=== PATIENT | female | born 1935 | race Caucasian/White ===

== ENCOUNTER 2019-07-23 18:11 | Emergency (ER) | payer MEDICARE, SELFPAY ==
[2019-07-23 18:13] VITALS: BP 156/86; PULSE 80; RESP 16; TEMP 36.2; O2SAT 98; BMI 20.5
--- NOTE | 2019-07-23 18:17 | EKG12_ITS ---
Test Reason : CP Blood Pressure : / mmHG Vent. Rate : 083 BPM Atrial Rate : 083 BPM P-R Int : 162 ms QRS Dur : 078 ms QT Int : 346 ms P-R-T Axes : 077 066 046 degrees QTc Int : 406 ms Sinus rhythm with Premature supraventricular complexes and with occasional Premature ventricular comp lexes Low voltage QRS Septal infarct , age undetermined Abnormal ECG Confirmed by LEDY THOMAS, LUTHER ([id number]), commissioning editor ENMANUEL BRAUN ([id number]) on 07/28/2019 1:41:01 PM Referred By: Elvin Zavala Confirmed By:OSMIN VILLAFANA MD
--- NOTE | 2019-07-23 19:22 | ED.RN ---
NO OLD EKGS IN MUSE
[2019-07-23 19:27] LABS: Absolute Lymphocyte Count 0.65 X10^3/uL (0.83-4.51); Absolute Neutrophil Count 10.7 X10^3/uL (2.0-7.7); Basophil# 0.09 X10^3/uL; Basophil% 0.7 % (0-1); Eosinophil# 0.06 X10^3/uL; Eosinophils% 0.5 % (0-5); Hematocrit 43.1 % (37-47); Hemoglobin 14.8 g/dL (12.0-15.0); Lymphocyte # 0.65 X10^3/ul (4.0); Lymphocyte % 5.3 % (19-41); Mean Corp Hgb Conc 34.3 g/dL (32-36); Mean Corpuscular Hgb 31.2 pg (27.0-32.0); Mean Corpuscular Volume 90.7 fL (81-99); Mean Platelet Vol. 11.1 fl (6.2-12.0); Monocyte# 0.63 X10^3/uL; Monocyte% 5.2 % (0-10); NRBC Flagged by Analyzer 0 % (0-5); Neutrophil # 10.74 X10^3/uL (2.7-7.7); Neutrophil % 87.9 % (47-70); Platelet Count 223 K/mm3 (150-450); RBC Distribution Width CV 12.1 % (11.6-14.6); RBC Distribution Width SD 40.5 fl (35.1-43.9); Red Blood Count 4.75 M/mm3 (4.2-5.4); White Blood Count 12.2 K/mm3 (4.4-11.0)
[2019-07-23 19:36] LABS: Anion Gap 9 (5-15); BUN 20 mg/dL (7-18); BUN/Creat Ratio 11.8 RATIO (10-20); Chloride 98 mmol/L (98-107); Creatinine, Serum 1.69 mg/dL (0.55-1.02); EST Glomerular Filtration Rate 31 mL/min (>60); Est Glom Filt Rate - Afr Amer 37 mL/min (>60); Estimated Creatinine Clearance 18.75 ml/min; Glucose 139 mg/dL (74-106); Potassium 3.2 mmol/L (3.5-5.1); Sodium Level 133 mmol/L (136-145)
--- NOTE | 2019-07-23 19:37 | RAD_ITS ---
STUDY: X-RAY CHEST REASON FOR EXAM: Female, 83 years old. Palpitation TECHNIQUE: Frontal view COMPARISON: None. FINDINGS: The lungs are clear and expanded. There is no demonstrated pleural abnormality. Normal size heart. Normal mediastinum and annie. Normal visualized pulmonary arteries. Calcified visualized aortic arch and descending thoracic aorta. Degenerative changes of the thoracic spine. Normal visualized ribs, clavicles, and shoulders. There is no demonstrated abnormality of the visualized soft tissue structures of the upper abdomen. RAD/Chest 1 View (Portable) IMPRESSION: Normal x-ray examination of the chest. Electronically Signed: Demetrius Pederson DO at 20:00 EDT Tel [phone], Service support ,
[2019-07-23 19:47] VITALS: PULSE 84; RESP 15; O2SAT 95
[2019-07-23 20:18] VITALS: BP 140/72; PULSE 81; RESP 17; O2SAT 97
[2019-07-23 20:18] LABS: Thyroid Stim Hormone (TSH) 1.74 uIU/mL (0.358-3.74)
[2019-07-23 20:32] LABS: International Normalized Ratio 1.1; Prothrombin Time (Protime)PT. 13.8 SECONDS (11.7-14.9)
[2019-07-23 20:33] LABS: Partial Thromboplast Time 27.7 Seconds (24.1-36.2)
[2019-07-23 21:13] VITALS: BP 122/69; PULSE 74; RESP 12; O2SAT 95
--- NOTE | 2019-07-23 21:24 | ED.VISSUMM ---
- ER Visit Summary Date of Service: 07/23/19 Chief Complaint: Irregular heartbeat History of Present Illness: The patient is a 83 F with an irregular heartbeat that started this evening today. The patient woke up from a nap and noticed her heart rate was 120 on her Fitbit. She had some mild shortness of breath. Her daughter is an ER nurse and checked her pulse and it was irregular. The patient has no history of atrial fibrillation. She does not take blood thinners. History of hypertension, hyperlipidemia, and hypothyroidism. Denies any lung disease, PE, or recent illness. Physical Examination: Afebrile and vital signs are unremarkable. Alert and oriented. No acute distress. Irregular heartbeat. Lungs clear. Abdomen soft. Skin normal. Pulses strong and equal. Calf soft and supple. Test Results: EKG showed sinus rhythm at a rate of 83 with PACs and PVCs. White count 12.2, sodium 133, potassium 3.2, glucose 139, BUN 20, creatinine 1.69. Coags normal. Troponin normal. TSH normal. Chest x-ray normal. Emergency Department Course and Treatment: Patient was placed on a monitor. She showed sinus rhythm with PVCs and PACs. I did not appreciate atrial fibrillation or other dysrhythmias. QTc was normal. Otherwise EKG was normal. Her work-up here was unremarkable. Her potassium was 3.2 which was replaced with K-Dur 40 mEq. I believe the patient has symptomatic PVCs. Will order a Holter monitor and have her follow-up with cardiology. Family knows Dr. Zavala. Patient was advised to return for chest pain, shortness of breath, unexplained fatigue or lightheadedness, or any other new or concerning symptoms as she could require hospitalization. Patient voiced understanding and agreement. Family voiced understanding and agreement. Treatment Plan: Above Disposition: Discharge Impression: 1. Palpitations This note was generated with [employer] dictation software. It may contain incorrect words, spelling, and punctuation that were not noted in review of the chart prior to signing ED Disposition - Plan for ED Patient: Referrals: Fox Sanchez III, MD [Primary Care Provider] -
--- NOTE | 2019-07-23 21:28 | ED.DEP ---
ED Disposition - Plan for ED Patient: Instructions: Palpitations Referrals: Elvin Zavala MD [STAFF PHYSICIAN] -
[2019-07-23 21:36] VITALS: BP 130/78; PULSE 80; RESP 16; O2SAT 100
== END 2019-07-23 21:58 | disposition home or self-care (01) ==
LOC: ED 20:12
PROVIDERS: Emergency Provider Emergency Medicine; Family Provider Family Medicine; PCP Family Medicine
DX: R00.2 Palpitations (principal); I49.1 Atrial premature depolarization; I49.3 Ventricular premature depolarization; I10 Essential (primary) hypertension; E78.5 Hyperlipidemia, unspecified; E03.9 Hypothyroidism, unspecified; Z79.899 Other long term (current) drug therapy
CPT/HCPCS: 36415; 71045; 80048; 84443; 84484; 85025; 85610; 85730; 93005; 99285; A4216

== ENCOUNTER → 2019-07-23 21:23 | Outpatient (CLI) | payer MEDICARE, SELFPAY ==
[2019-07-23 18:13] VITALS: BMI 20.5
== END ==
PROVIDERS: Family Provider Family Medicine; PCP Family Medicine; Referring Provider Internal Medicine Cardiovascular Disease; Visit Provider Internal Medicine Cardiovascular Disease
DX: R00.2 Palpitations (principal); I49.1 Atrial premature depolarization; I49.3 Ventricular premature depolarization; I10 Essential (primary) hypertension; E78.5 Hyperlipidemia, unspecified; E03.9 Hypothyroidism, unspecified; Z79.899 Other long term (current) drug therapy; R06.02 Shortness of breath
CPT/HCPCS: 36415; 71045; 80048; 84443; 84484; 85025; 85610; 85730; 93225; 93226; A4216

== ENCOUNTER → 2019-08-06 12:54 | Outpatient (CLI) | payer MEDICARE, SELFPAY ==
[2019-07-25 08:47] VITALS: BMI 19.3
--- NOTE | 2019-08-06 12:57 | ECHOD_ITS ---
Reason For Study: Arrhythmia Procedure This was a 2D Doppler, Color Flow transthoracic echocardiogram. Exam performed in department. Left Ventricle Normal LV size. Left ventricular systolic function is normal. The estimated ejection fraction is 65 %. Normal diastology for age. No regional wall motion abnormalities noted. Right Ventricle Normal RV size. Normal systolic function. Atria Normal left atrium. Normal right atrium. Mitral Valve Normal mitral valve. Mild (1+) mitral valve insufficiency. Tricuspid Valve Normal tricuspid valve. Mild (1+) tricuspid valve insufficiency. Pulmonary artery systolic pressure is 35 mmHg. Aortic Valve Normal aortic valve. Trisinus/trileaflet aortic valve. Pulmonic Valve Normal pulmonic valve. Great Vessels Normal aortic root. The pulmonary artery is normal size. Normal inferior vena cava. Pericardium/Pleural No pericardial effusion. MMode/2D Measurements & Calculations LVIDd: 3.5 cm IVSd: 0.85 cm LVOT diam: 1.9 cm LVIDs: 1.7 cm LVPWd: 0.75 cm LVOT area: 2.7 cm2 RVDd: 3.1 cm FS: 51.0 % Ao root diam: 2.9 cm LAV(MOD-bp): 51.8 ml LA A4 area: 17.7 cm2 LAV(MOD-bp) Indexed: 36.5 ml/m2 LAV(MOD-sp2): 50.5 ml LAV(MOD-sp4): 46.5 ml LA dimension(2D): 3.1 cm RA A4 area: 13.8 cm2 Doppler Measurements & Calculations MV E max devin: 102.6 cm/sec Lat Peak E' Devin: 12.3 cm/sec Med Peak E' Devin: 9.6 cm/sec MV A max devin: 93.9 cm/sec E/E' lat: 8.3 E/E' med: 10.6 MV E/A: 1.1 Ao V2 max: 177.7 cm/sec LV V1 max: 122.4 cm/sec SV(LVOT): 78.3 ml Ao max P.6 mmHg LV V1 max P.0 mmHg Ao V2 mean: 111.7 cm/sec LV V1 mean P.2 mmHg Ao mean P.7 mmHg LV V1 mean: 85.1 cm/sec Ao V2 VTI: 36.8 cm LV V1 VTI: 28.6 cm TEE(I,D): 2.1 cm2 TEE(V,D): 1.9 cm2 PA V2 max: 136.8 cm/sec TR max devin: 277.3 cm/sec TR max P.9 mmHg Interpretation Summary Normal LV size. Left ventricular systolic function is normal. The estimated ejection fraction is 65 %. Normal diastology for age. Mild (1+) mitral valve insufficiency. Ordering Physician: Elvin Zavala Referring Physician: SUMIT Sanchez M.D. Performed By: Candie Ross, [facility]
[2019-08-06 15:55] LABS: Anion Gap 5 (5-15); BUN 14 mg/dL (7-18); BUN/Creat Ratio 12.6 RATIO (10-20); Chloride 108 mmol/L (98-107); Creatinine, Serum 1.11 mg/dL (0.55-1.02); EST Glomerular Filtration Rate 50 mL/min (>60); Est Glom Filt Rate - Afr Amer 61 mL/min (>60); Glucose 91 mg/dL (74-106); Magnesium 2.2 mg/dL (1.6-2.6); Sodium Level 141 mmol/L (136-145)
== END ==
PROVIDERS: Family Provider Family Medicine; PCP Family Medicine; Referring Provider Internal Medicine Cardiovascular Disease; Visit Provider Internal Medicine Cardiovascular Disease
DX: R00.2 Palpitations (principal)
CPT/HCPCS: 36415; 80048; 83735; 93306

== ENCOUNTER → 2019-10-08 13:15 | Outpatient (CLI) | payer MEDICARE, SELFPAY ==
[2019-09-03 08:46] VITALS: BMI 19.9
[2019-10-08 14:01] LABS: Anion Gap 6 (5-15); BUN 20 mg/dL (7-18); BUN/Creat Ratio 16.1 RATIO (10-20); Calcium,Total 10.2 mg/dL (8.5-10.1); Chloride 100 mmol/L (98-107); Creatinine, Serum 1.24 mg/dL (0.55-1.02); EST Glomerular Filtration Rate 44 mL/min (>60); Est Glom Filt Rate - Afr Amer 53 mL/min (>60); Glucose 121 mg/dL (74-106); Potassium 3.8 mmol/L (3.5-5.1); Sodium Level 134 mmol/L (136-145)
== END ==
PROVIDERS: Family Provider Family Medicine; PCP Family Medicine; Referring Provider Internal Medicine Cardiovascular Disease; Visit Provider Internal Medicine Cardiovascular Disease
DX: R00.2 Palpitations (principal)
CPT/HCPCS: 36415; 80048

== ENCOUNTER 2021-11-30 10:46 | Outpatient (CLI) | payer MEDICARE, SELFPAY ==
--- NOTE | 2021-11-30 10:52 | ECHOD_ITS ---
Reason For Study: MURMUR Procedure This was a 2D Doppler, Color Flow transthoracic echocardiogram. Exam performed in department. Left Ventricle Normal LV size. Left ventricular systolic function is normal. The estimated ejection fraction is 60 %. Stage 1 diastolic dysfunction. No regional wall motion abnormalities noted. Right Ventricle Normal RV size. Atria Normal left atrium. Normal right atrium. Mitral Valve Normal mitral valve. Tricuspid Valve Normal tricuspid valve. Mild (1+) tricuspid valve insufficiency. Pulmonary artery systolic pressure is 33 mmHg. Aortic Valve Trisinus/trileaflet aortic valve. Mild focal aortic valve thickening. Peak aortic valve gradient 9 mmHg. Mean aortic valve gradient 4 mmHg. Pulmonic Valve Normal pulmonic valve. Mild (1+) pulmonic valve insufficiency. Great Vessels Normal aortic root. The pulmonary artery is normal size. Normal inferior vena cava. Pericardium/Pleural No pericardial effusion. MMode/2D Measurements & Calculations LVIDd: 3.3 cm IVSd: 0.81 cm LVOT diam: 1.9 cm LVIDs: 1.9 cm LVPWd: 0.87 cm LVOT area: 2.7 cm2 RVDd: 2.7 cm FS: 41.0 % Ao root diam: 3.0 cm LAV(MOD-bp): 29.5 ml LA A4 area: 12.1 cm2 LAV(MOD-bp) Indexed: 21.0 ml/m2 LAV(MOD-sp2): 30.4 ml LAV(MOD-sp4): 28.1 ml LA dimension(2D): 3.1 cm RA A4 area: 12.0 cm2 Time Measurements MV dec time: 0.24 sec Doppler Measurements & Calculations MV E max devin: 57.3 cm/sec Lat Peak E' Devin: 5.9 cm/sec Med Peak E' Devin: 5.4 cm/sec MV A max devin: 80.2 cm/sec E/E' lat: 9.6 E/E' med: 10.6 MV E/A: 0.71 Ao V2 max: 151.3 cm/sec LV V1 max: 100.0 cm/sec SV(LVOT): 54.3 ml Ao max P.2 mmHg LV V1 max P.0 mmHg Ao V2 mean: 95.9 cm/sec LV V1 mean P.8 mmHg Ao mean P.3 mmHg LV V1 mean: 64.6 cm/sec Ao V2 VTI: 30.3 cm LV V1 VTI: 20.2 cm TEE(I,D): 1.8 cm2 TEE(V,D): 1.8 cm2 PA V2 max: 68.9 cm/sec TR max devin: 267.8 cm/sec TR max P.7 mmHg ECHO/Echo Complete Interpretation Summary Normal LV size. Left ventricular systolic function is normal. The estimated ejection fraction is 60 %. Mild focal aortic valve thickening. Stage 1 diastolic dysfunction. Ordering Physician: Nerissa Fletcher Referring Physician: Dorian Fuentes Performed By: Tonya Ruiz, ANGEL, RVT
== END 2021-11-30 23:59 | disposition home or self-care (01) ==
PROVIDERS: PCP Family Medicine; Visit Provider Physician Assistant Medical
DX: R00.2 Palpitations (principal); I34.0 Nonrheumatic mitral (valve) insufficiency
CPT/HCPCS: 93306